=== PATIENT | male | born 1990 | race Caucasian/White ===

== ENCOUNTER 2017-05-17 15:51 | Emergency (ER) | payer SELFPAY ==
[~2017-05-17] VITALS: Ht 177.8 cm; Wt 68.0 kg
--- NOTE | 2017-05-17 16:02 | NUR ---
PT MADELEINE FROM HOME TO ER BED 15. HERE FOR FLU LIKE SYMPTOMS X 2 DAYS. STARTED HAVING ABDOMINAL PAIN, NAUSEA AND VOMITING X 4 HOURS. [employer]. STABLE VITALS. AWAITING MD SHANNON.
--- NOTE | 2017-05-17 16:13 | NUR ---
DR MCKNIGHT AT BEDSIDE FOR EVAL.
--- NOTE | 2017-05-17 16:13 | NUR ---
Jae logan in [facility] - 05/17/17 at 1836 by KIMBERLI IV LINE STARTED BLOOD DRAWN AND SENT TO LAB.
--- NOTE | 2017-05-17 16:13 | NUR ---
Jae logan in [facility] - 05/17/17 at 1837 by KIMBERLI IV LINE STARTED BLOOD DRAWN AND SENT TO LAB.
--- NOTE | 2017-05-17 16:21 | NUR ---
IV LINE STARTED. BLOOD DRAWN AND SENT TO LAB.
[2017-05-17] MEDS ORDERED: ONDANSETRON HCL/PF 4 MG/2 ML VIAL ONE (16:25)
[2017-05-17] MEDS ORDERED: ACETAMINOPHEN ES 500 MG TABLET ONE (16:25)
[2017-05-17] MEDS ORDERED: IBUPROFEN 600 MG TABLET PO ONE ×2 (16:26→16:30)
[2017-05-17 16:27] LABS: BASOPHILS # (AUTO) 0.3 /CMM (0.0-0.2); BASOPHILS % (AUTO) 1.6 % (0.0-2.0); EOSINOPHILS % (AUTO) 0.1 % (0.0-6.0); HEMATOCRIT 49 % (39-51); HEMOGLOBIN 17.3 g/dL (13.5-17.5); LYMPHOCYTES # (AUTO) 0.8 /CMM (0.8-4.8); LYMPHOCYTES % (AUTO) 5.3 % (20.0-44.0); MEAN CORPUSCULAR HEMOGLOBIN 32 PG (26.0-33.0); MEAN CORPUSCULAR HGB CONC 35 g/dl (31.0-36.0); MEAN CORPUSCULAR VOLUME 92 fL (80-96); MONOCYTES # (AUTO) 0.6 /CMM (0.1-1.30); MONOCYTES % (AUTO) 3.8 % (2.0-12.0); NEUTROPHILS # (AUTO) 13.9 /CMM (1.8-8.9); NEUTROPHILS % (AUTO) 89.2 % (43.0-81.0); PLATELET COUNT (AUTO) 214 /CMM (150-450); RDW COEFFICIENT OF VARIATION 11.8 (11.5-15.0); WHITE BLOOD COUNT (AUTO) 15.6 K/uL (4.3-11.0)
[2017-05-17] MEDS ORDERED: ONDANSETRON HCL/PF 4 MG/2 ML VIAL IVP ONE (16:30)
[2017-05-17] MEDS ORDERED: ACETAMINOPHEN ES 500 MG TABLET PO ONE (16:30)
[2017-05-17] MEDS ORDERED: IV NS 0.9% 1,000 ML BAG IV ONE (16:30)
[2017-05-17 16:39] LABS: CALCIUM, SERUM 10.5 mg/dL (8.5-10.1); POTASSIUM 4.3 mmol/L (3.5-5.1)
[2017-05-17 16:44] LABS: ALBUMIN 5.2 g/dL (3.4-5.0); BILIRUBIN,DIRECT 0.3 mg/dL (0.0-0.2); BILIRUBIN,TOTAL 1.2 mg/dL (0.2-1.0); TOTAL PROTEIN, SERUM 8.7 g/dL (6.4-8.2)
--- NOTE | 2017-05-17 18:26 | NUR ---
U/S TECH AT BEDSIDE FOR GALLBLADDER ULTRASOUND.
--- NOTE | 2017-05-17 19:49 | NUR ---
Patient discharged to home in stable condition. Written and verbal after care instructions given. Patient verbalizes understanding of instruction.IV removed. Catheter intact and site benign. Pressure and 4x4 applied to site. No bleeding noted.
[2017-05-17 19:52] VITALS: BP 118/65
== END 2017-05-17 19:54 | disposition home or self-care (01) ==
LOC: ER 15:53
DX: R10.13 Epigastric pain (principal); F17.200 Nicotine dependence, unspecified, uncomplicated
CPT/HCPCS: 36415; 71045; 76705; 80048; 80076; 83690; 85025; 87804; 96374; 99285; 99406; A4606; J2405; J7030; Z7610; 87400